=== PATIENT | female | born 1955 | race Caucasian/White ===

== ENCOUNTER 2021-07-27 17:09 | Emergency (ER) | payer MEDICARE, OTHER, SELFPAY ==
--- NOTE | ~2021-07-27 | XR_ITS ---
[[id number] ] INDICATION: Right rib pain TECHNIQUE: Frontal projection of the upper right ribs, frontal projection of the lower right ribs, ob lique projection of all the right ribs, frontal inspiratory chest x-ray for interpretation. FINDINGS: There are no displaced rib fractures identified. There are no soft tissue abnormality see n. The lungs are clear. IMPRESSION: 1:No acute displaced rib fractures. Reviewed, dictated and finalized at location A.
[2021-07-27 17:41] VITALS: BP 146/80; PULSE 75; RESP 20; TEMP 37; O2SAT 98
--- NOTE | 2021-07-27 17:44 | ED.GENADULT ---
HPI - General Adult General Chief complaint: Abdominal Pain Stated complaint: R side bruising, knot gone History of Present Illness HPI narrative: Shahida presented to the ER with pain and bruising in her RLQ. For a few days she has had increased cough and sputum production. While coughing she had a ripping pain in her lower right side and the bruise came to the surface. There is no CP, SOB, N/V, or lightheadedness. Related Data Home Medications Medication Instructions Recorded Confirmed albuterol sulfate 90 mcg/actuation 2 inh inhalation Q4H PRN sob 07/27/21 07/27/21 aerosol inhaler (Ventolin HFA) esomeprazole magnesium 40 mg 40 cap PO DAILY 07/27/21 07/27/21 capsule,delayed release famotidine 20 mg tablet 20 mg PO DAILY 07/27/21 07/27/21 fluoxetine 20 mg capsule 20 cap PO BID 07/27/21 07/27/21 meloxicam 15 mg tablet 1 tablet PO DAILY 07/27/21 07/27/21 morphine 15 mg tablet,extended 1 tablet PO BID 07/27/21 07/27/21 release oxycodone-acetaminophen 10 mg-325 1 tablet PO TID 07/27/21 07/27/21 mg tablet prednisone 20 mg tablet 1 tablet PO DAILY 07/27/21 07/27/21 Allergies Allergy/AdvReac Type Severity Reaction Status Date / Time No Known Allergies Allergy Verified 07/27/21 17:46 Review of Systems Constitutional: Constitutional: Denies chills and Denies fever(s) Eyes: Eyes: Reports no additional eye complaints ENT: Reports system reviewed and no additional complaints, except as documented Cardiovascular: Cardiovascular: Reports no additional cardiovascular complaints Respiratory: Respiratory: Reports as per HPI Gastrointestinal: Gastrointestinal: Reports no additional gastrointestinal complaints Genitourinary: Genitourinary: Reports no additional female genitourinary complaints Musculoskeletal: Musculoskeletal: Reports no additional musculoskeletal complaints Integumentary/Breasts: Skin/Breast: Reports system reviewed and no additional complaints, except as docu Neurologic: Reports system reviewed and no additional complaints, except as documented Psychiatric: Psychiatric: Reports no additional psychiatric complaints Endocrine: Endocrine: Reports no additional endocrine complaints Hematologic/Lymphatic: Hematologic/Lymphatic: Reports no additional hematologic/lymphatic complaints Allergic/Immunologic: Allergic/Immunologic: Reports no additional allergic/immunologic complaints Exam Const: Nutritional Appearance: well nourished Orientation/consciousness: patient oriented x3 Limitations: no limitations HENMT: Head: normal to inspection General nose exam: Normal external nose present Face and sinus: normal facial exam Eyes: Conjunctivae: conjunctivae normal Pupils: Equal, round and reactive pupils present Neck: Neck: normal visual inspection Chest: Chest palpation & inspection: normal inspection of the chest Resp: Effort & Inspection: labored Other: slightly labored with prolonged expiratory phase and diffuse wheezing Cardio: Rate: regular rate Rhythm: regular rhythm GI: Other: normal bowel sounds Skin: General skin exam: normal color Rashes: no rashes Other: Right flank had a large (several cm in diameter) round contusion that was TTP Neuro: General: patient oriented x3 and moves all extremities Extrem: General: normal to inspection Psych: Mental Status: mental status grossly normal Course Course Emergency Course: [[id number] ] INDICATION: Right rib pain TECHNIQUE: Frontal projection of the upper right ribs, frontal projection of the lower right ribs, oblique projection of all the right ribs, frontal inspiratory chest x-ray for interpretation. FINDINGS:? There are no displaced rib fractures identified.? There are no soft tissue abnormality seen.? The lungs are clear. IMPRESSION: 1:No acute displaced rib fractures. Vital Signs Vital signs: Vital Signs Temperature 98.6 F 07/27/21 17:41 Pulse Rate 75 07/27/21 17:41 Respiratory Rate 20 07/27/21
[2021-07-27] MEDS: AZITHROMYCIN 250 MG TABLET 500 MG PO (17:59)
[2021-07-27] MEDS: predniSONE 40 MG, predniSONE 10 MG 50 MG PO (18:00)
[2021-07-27 18:27] VITALS: BP 137/69; PULSE 66; RESP 20; O2SAT 96
[2021-07-27 18:29] VITALS: O2SAT 96
[2021-07-27 18:30] VITALS: BP 137/69; PULSE 67; RESP 20; O2SAT 96
== END 2021-07-27 18:46 | disposition home or self-care (01) ==
PROVIDERS: Emergency Provider Family Medicine
DX: J44.1 Chronic obstructive pulmonary disease with (acute) exacerbation (principal); T14.8XXA Other injury of unspecified body region, initial encounter
CPT/HCPCS: 71101; 99283; A9270; J7512

== ENCOUNTER 2023-07-19 19:09 | Emergency (ER) | payer MEDICARE, SELFPAY ==
--- NOTE | ~2023-07-19 | XR_ITS ---
EXAMINATION: XR knee RT min 4V DATE: 07/19/2023 19:53 INDICATION: Right knee trauma TECHNIQUE: Weight bearing anteroposterior and Nova, sunrise, and flexed lateral views of the aff ected knee were obtained COMPARISON: None. FINDINGS: Alignment is normal. No fracture. Mild osteoarthritis with mild joint space narrowing at the medial compartment of the right knee and at the medial side of the patellofemoral compartment. Moderate-size d right knee joint effusion.. Soft tissues are otherwise unremarkable. IMPRESSION: 1. Moderate-sized right knee joint effusion without acute osseous abnormality. Reviewed, dictated and finalized at location A.
[2023-07-19 19:15] VITALS: BP 156/97; PULSE 78; RESP 20; TEMP 36.4; O2SAT 97
--- NOTE | 2023-07-19 19:23 | ED.FALL ---
HPI - Fall General Chief Complaint: Extremity Injury, Lower Stated Complaint: R knee Injury Time Seen by Provider: 07/19/23 19:23 Source: patient Mode of arrival: ambulatory Limitations: no limitations History of Present Illness HPI Narrative: 68 year old female presents to the Emergency Department complaining of right knee pain. Patient states she fell onto right knee at 1430. States she struck her head and right elbow, but has no problem there [does not want xr or ct except of knee]. MD complaint: fall Onset (ago): hour(s) (5) Fall from: standing Place fall occurred: home Loss of consciousness: none Context: tripped/slipped Location of injury - extremities: Right: knee Severity: moderate Related Data Home Medications Medication Instructions Recorded Confirmed albuterol sulfate 90 mcg/actuation 2 inh inhalation Q4H PRN sob 07/27/21 07/19/23 aerosol inhaler (Ventolin HFA) esomeprazole magnesium 40 mg 40 cap PO DAILY 07/27/21 07/19/23 capsule,delayed release famotidine 20 mg tablet 20 mg PO DAILY 07/27/21 07/19/23 fluoxetine 20 mg capsule 20 cap PO BID 07/27/21 07/19/23 meloxicam 15 mg tablet 1 tablet PO DAILY 07/27/21 07/19/23 morphine 15 mg tablet,extended 1 tablet PO BID 07/27/21 07/19/23 release oxycodone-acetaminophen 10 mg-325 1 tablet PO TID 07/27/21 07/19/23 mg tablet prednisone 20 mg tablet 1 tablet PO DAILY 07/27/21 07/19/23 Allergies Allergy/AdvReac Type Severity Reaction Status Date / Time No Known Allergies Allergy Verified 07/19/23 19:26 Review of Systems Review of Systems: All systems reviewed & are unremarkable except as noted in HPI and below Constitutional: Constitutional: Reports as per HPI Eyes: Eyes: Reports as per HPI ENT: Reports system reviewed and no additional complaints, except as documented Cardiovascular: Cardiovascular: Reports as per HPI Respiratory: Respiratory: Reports as per HPI Gastrointestinal: Gastrointestinal: Reports as per HPI Genitourinary: Genitourinary: Reports no additional female genitourinary complaints Musculoskeletal: Musculoskeletal: Reports no additional musculoskeletal complaints and Reports arthralgias (right knee) Integumentary/Breasts: Skin/Breast: Reports system reviewed and no additional complaints, except as docu Neurologic: Reports system reviewed and no additional complaints, except as documented Exam Const: General: healthy appearing Nutritional Appearance: well nourished Orientation/consciousness: patient oriented x3 Limitations: no limitations HENMT: Head: normal to inspection Ears: external ears normal Face/Nose/Sinus: Normal external nose present Face and sinus: normal facial exam Eyes: Pupils: Equal, round and reactive pupils present EOM: EOMs intact bilaterally Neck: Neck: normal visual inspection Other: non-tender Chest: Chest palpation & inspection: normal inspection of the chest Resp: Effort & Inspection: normal respiratory effort Cardio: Rate: regular rate Rhythm: regular rhythm GI: Inspection: non-distended Skin: General skin exam: normal color Rashes: no rashes Neuro: General: patient oriented x3 Other: grossly normal Extrem: Other: tender to palpation patella right knee. Knee stable, NV intact. Course Course Emergency Course: 68 y/o female presents to the ED c/o fall 5 hours ago. Has pain to right knee /patella. States she struck her head and right elbow, but states they are fine and does not want them XR or CT. PE: tender anterior R knee /patella. Knee stable, NV intact. XR R Knee: moderate effusion, no fx *reviewed XR results with patient and discussed other potential knee injuries and planned management. patient advised to non-wt bear R knee, knee immobilizer for stabilization and f/u PCP in 2-3 days for re-evaluation. Patient advised she may need MRI to evaluate. Tx: knee immobilizer Instructions Vital Signs Vital signs: Vital Signs Temperature 36
--- NOTE | 2023-07-19 20:19 | PC.NURSE ---
R knee immobilizer in place, CSM intact after placement.
== END 2023-07-19 20:26 | disposition home or self-care (01) ==
PROVIDERS: Emergency Provider Emergency Medicine; PCP Family Medicine
DX: S80.01XA Contusion of right knee, initial encounter (principal); S83.91XA Sprain of unspecified site of right knee, initial encounter; W19.XXXA Unspecified fall, initial encounter
CPT/HCPCS: 73564; 99283; L1830